=== PATIENT | male | born 1995 ===

== ENCOUNTER 2022-02-17 15:01 | Outpatient (CLI) | payer OTHER ==
--- NOTE | 2022-02-17 17:58 | MRI Report ---
PROCEDURE: Lumbar Spine W/O INDICATIONS: LUMBAR RADICULOPATHY TECHNIQUE: Noncontrast sagittal T1 spin echo and T2 fast echo, sagittal STIR, axial T1 and T2 fast spin echo thr ough the lumbar spine. In cases with scoliosis, additional coronal T2 fast spin echo may be performe d. COMPARISON: None. FINDINGS: Image quality: Excellent. Alignment and Curvature: There is normal bony alignment. Bone Marrow: Marrow is of normal overall signal. No acute vertebral body compression fractures. Spinal Cord: Conus medullaris terminates at the L1 level. Visualized cord demonstrates normal signa l and size. Paraspinous Soft Tissues: No paravertebral masses. T12-L1: Normal in appearance. L1-L2: Normal in appearance. L2-L3: Normal in appearance. L3-L4: Normal in appearance. L4-L5: Normal in appearance. L5-S1: Mild loss of disc height and disc signal are seen. Mild disc bulge is seen, with a left fo raminal disc protrusion, as on series 5 image 41. Note is made of an annular fissure posteriorly. Th ere is moderate left-sided neural foraminal narrowing and no right-sided neuroforaminal narrowing. T he central canal is widely patent. IMPRESSION: Focal L5-S1 degenerative change, with moderate left-sided neuroforaminal narrowing. Reviewed by: Dirk Talavera MD on 02/17/2022 4:57 PM [facility] Approved by: Dirk Talavera MD on 02/17/2022 4:57 PM [facility] Station ID: [id number]
== END 2022-02-17 15:02 | disposition home or self-care (01) ==
LOC: DI 15:01
DX: M51.37 Other intervertebral disc degeneration, lumbosacral region (principal); M48.07 Spinal stenosis, lumbosacral region; M51.27 Other intervertebral disc displacement, lumbosacral region